=== PATIENT | male | born 1930 | race Caucasian/White ===

== ENCOUNTER 2017-03-12 06:26 | Inpatient (IN) | payer OTHER ==
[~2017-03-12] VITALS: Ht 177.8 cm; Wt 65.3 kg
[2017-03-12 06:32] VITALS: BP_SYST 131
[2017-03-12] MEDS ORDERED: NACL 0.9% 1,000 ML IV ONE (06:38)
[2017-03-12] MEDS ORDERED: DOCU-144 PO (07:01)
[2017-03-12] MEDS ORDERED: FAMO20TA8 PO (07:01)
[2017-03-12] MEDS ORDERED: DULR10 RC (07:01)
[2017-03-12] MEDS ORDERED: DILT120C89 PO (07:01)
[2017-03-12] MEDS ORDERED: AMI200 PO (07:01)
[2017-03-12] MEDS ORDERED: FURO-150 PO (07:01)
[2017-03-12] MEDS ORDERED: IPRA3AMP9 INH (07:01)
[2017-03-12] MEDS ORDERED: TAMS-11 PO (07:01)
[2017-03-12] MEDS ORDERED: LIP20 PO (07:01)
[2017-03-12] MEDS ORDERED: PRED10TA PO (07:01)
[2017-03-12] MEDS ORDERED: CLOP75TA2 PO (07:01)
[2017-03-12] MEDS ORDERED: MONT10TA25 PO (07:01)
[2017-03-12] MEDS ORDERED: SENNS PO (07:01)
[2017-03-12] MEDS ORDERED: LISI-209 PO (07:01)
[2017-03-12] MEDS ORDERED: GUAI600T86 PO (07:01)
[2017-03-12] MEDS ORDERED: HEPA500014 SUBCUT (07:01)
[2017-03-12] MEDS ORDERED: ASPI325T2 PO (07:01)
[2017-03-12] MEDS ORDERED: CARV6.2554 PO (07:01)
[2017-03-12 08:13] LABS: HEMATOCRIT 29.1 % (36-54); MEAN CORPUSCULAR HEMOGLOBIN 32 pg (27-31); MEAN CORPUSCULAR HGB CONC 34 % (32-36); MEAN CORPUSCULAR VOLUME 93 fL (79.0-98.0); PLATELET COUNT (AUTO) 269 K/uL (130-430); RED BLOOD CELL COUNT(AUTO) 3.13 MIL/uL (4.2-6.2); RED CELL DISTRIBUTION WIDTH 13.3 % (9.0-15.0); WHITE BLOOD COUNT (AUTO) 14.6 K/uL (4.8-10.8)
[2017-03-12 08:28] LABS: ANION GAP 6 (5-15); CALCIUM 8.2 mg/dL (8.4-11.0); CHLORIDE 101 mmol/L (98-107); CREATININE 0.95 mg/dL (0.55-1.30); GLUCOSE 107 mg/dL (70-99); SODIUM SERUM 138 mmol/L (136-145); UREA NITROGEN, BLOOD 28 mg/dL (8-21)
[2017-03-12 08:30] LABS: ALANINE AMINOTRANSFERASE 20 U/L (12-78); ALBUMIN 2.2 g/dL (3.4-4.8); AMYLASE 41 U/L (0-100); ASPARTATE AMINOTRANSFERASE 13 U/L (10-37); LIPASE 117 U/L (73-393); TOTAL BILIRUBIN 0.5 mg/dL (0.0-1.0)
[2017-03-12] MEDS ORDERED: SENNOSIDES/DOCUSATE SODIUM 1 TAB TABLET(SENOKOT-S) PO PRN (08:30)
[2017-03-12 08:36] LABS: POTASSIUM 2.9 mmol/L (3.5-5.1)
[2017-03-12 08:41] LABS: INR 1.1 (0.80-1.20)
[2017-03-12] MEDS ORDERED: KCL 10 mEq in 50 mL (PREMIX) 50 ML IV ONE (08:45)
[2017-03-12] MEDS: FUROSEMIDE 20 MG TABLET PO SCH (09:00)
[2017-03-12] MEDS: ASPIRIN 325 MG TABLET PO SCH (09:00)
[2017-03-12] MEDS: PREDNISONE 20 MG TABLET PO SCH (09:00)
[2017-03-12] MEDS: AMIODARONE HCL 200 MG TABLET PO SCH (09:00)
[2017-03-12] MEDS: CARVEDILOL 6.25 MG TABLET (COREG) PO SCH ×2 (09:00→21:00)
[2017-03-12] MEDS: FAMOTIDINE 20 MG TABLET PO SCH (09:00)
[2017-03-12] MEDS: BISACODYL 10 MG/SUPPOSITORY RC SCH (09:00)
[2017-03-12] MEDS ORDERED: DILTIAZEM HCL 120 MG CAP.SR.24H PO SCH (09:00)
[2017-03-12] MEDS: LISINOPRIL 5 MG TABLET PO SCH (09:00)
[2017-03-12 09:12] LABS: ATYPICAL LYMPHOCYTES % 0 % (0-0); BAND % (MANUAL) 0 % (0-6); BASOPHILS % (MANUAL) 0 % (0-2); EOSINOPHILS % (MANUAL) 1 % (0-7); LYMPHOCYTES % (MANUAL) 6 % (20-46); MONOCYTES % (MANUAL) 3 % (0-11)
[2017-03-12] MEDS ORDERED: IOHEXOL 100 ML IV ONE (09:17)
[2017-03-12 09:55] VITALS: BP_SYST 120
[2017-03-12] MEDS: HYDROcodone/ACETAMIN 10-325 MG TAB PO PRN ×2 (12:17→20:41)
[2017-03-12 14:36] VITALS: BP_SYST 120
[2017-03-12] MEDS ORDERED: AMIODARONE HCL 200 MG TABLET PO ONE ×2 (14:45→15:00)
[2017-03-12] MEDS ORDERED: DOCUSATE SODIUM 100 MG CAPSULE PO ONE (14:45)
[2017-03-12] MEDS ORDERED: FAMOTIDINE 20 MG TABLET PO ONE ×2 (14:45→15:00)
[2017-03-12] MEDS ORDERED: CARVEDILOL 6.25 MG TABLET (COREG) PO ONE (14:45)
[2017-03-12] MEDS ORDERED: ASPIRIN 325 MG TABLET PO ONE ×2 (14:45→15:00)
[2017-03-12] MEDS ORDERED: BISACODYL 10 MG/SUPPOSITORY RC ONE ×2 (14:45→15:00)
[2017-03-12] MEDS ORDERED: LISINOPRIL 5 MG TABLET PO ONE (15:00)
[2017-03-12] MEDS ORDERED: guaiFENesin ER 600 MG TAB PO ONE (15:00)
[2017-03-12] MEDS ORDERED: TAMSULOSIN HCL 0.4 MG CAP PO ONE (15:00)
[2017-03-12] MEDS ORDERED: FUROSEMIDE 20 MG TABLET PO ONE (15:00)
[2017-03-12] MEDS ORDERED: DILTIAZEM HCL 120 MG CAP.SR.24H PO ONE (15:00)
[2017-03-12] MEDS ORDERED: PREDNISONE 20 MG TABLET PO ONE (15:00)
[2017-03-12] MEDS: HYDROcodone/ACETAMIN 5-325 MG TAB (NORCO/ VICODIN) PO PRN (15:44)
[2017-03-12 16:30] VITALS: BP_SYST 131
[2017-03-12] MEDS: IPRATROPIUM/ALBUTEROL SULFATE 3 ML AMPUL.NEB INH SCH ×4 (17:27→23:39)
[2017-03-12] MEDS ORDERED: MONTELUKAST 10 MG TABLET PO SCH (18:00)
[2017-03-12] MEDS ORDERED: GOLYTELY / COLYTE SOLUTION 4 LITERS PO ONE (18:30)
[2017-03-12 20:00] VITALS: BP_SYST 108
[2017-03-12] MEDS ORDERED: BISACODYL 5 MG TABLET.DR (DULCOLAX) PO SCH (20:00)
[2017-03-12] MEDS: guaiFENesin ER 600 MG TAB PO SCH (20:42)
[2017-03-12] MEDS: DOCUSATE SODIUM 100 MG CAPSULE PO SCH (20:42)
[2017-03-12] MEDS: TAMSULOSIN HCL 0.4 MG CAP PO SCH (20:43)
[2017-03-12] MEDS ORDERED: ATORVASTATIN 20 MG TABLET PO SCH (21:00)
[2017-03-12] MEDS: NACL 0.9% 1,000 ML IV SCH (22:04)
[2017-03-12] MEDS ORDERED: NS 250 ML IV ONE (22:30)
[2017-03-13] MEDS: HYDROcodone/ACETAMIN 10-325 MG TAB PO PRN ×2 (00:18→04:22)
[2017-03-13 01:54] VITALS: BP_SYST 117
[2017-03-13 03:33] VITALS: BP_SYST 107
[2017-03-13] MEDS: IPRATROPIUM/ALBUTEROL SULFATE 3 ML AMPUL.NEB INH SCH ×3 (03:49→10:52)
[2017-03-13] MEDS: NACL 0.9% 1,000 ML IV SCH ×2 (04:26→06:56)
[2017-03-13 06:57] LABS: HEMOGLOBIN 8.5 g/dL (14.0-18.0); LYMPHOCYTES # (AUTO) 0.4 K/uL (1.0-5.5); LYMPHOCYTES % (AUTO) 2.8 % (20.5-51.5); MEAN CORPUSCULAR HEMOGLOBIN 32 pg (27-31); MEAN CORPUSCULAR HGB CONC 34 % (32-36); MEAN CORPUSCULAR VOLUME 93 fL (79.0-98.0); MONOCYTES # (AUTO) 0.3 K/uL (0.0-1.0); MONOCYTES % (AUTO) 2.5 % (1.7-9.3); NEUTROPHILS # (AUTO) 13.1 K/uL (1.8-7.7); NEUTROPHILS % (AUTO) 94.7 % (40.0-70.0); PLATELET COUNT (AUTO) 220 K/uL (130-430); RED BLOOD CELL COUNT(AUTO) 2.69 MIL/uL (4.2-6.2); RED CELL DISTRIBUTION WIDTH 14.1 % (9.0-15.0); WHITE BLOOD COUNT (AUTO) 13.8 K/uL (4.8-10.8)
[2017-03-13 07:20] LABS: INR 1.1 (0.80-1.20); PROTHROMBIN TIME 11.8 SECS (9.5-12.5)
[2017-03-13 07:24] LABS: ANION GAP 9 (5-15); CALCIUM 7.7 mg/dL (8.4-11.0); CHLORIDE 105 mmol/L (98-107); CREATININE 0.89 mg/dL (0.55-1.30); GLUCOSE 151 mg/dL (70-99); POTASSIUM 3.1 mmol/L (3.5-5.1); SODIUM SERUM 139 mmol/L (136-145); UREA NITROGEN, BLOOD 27 mg/dL (8-21)
[2017-03-13 08:15] VITALS: BP_SYST 116
[2017-03-13] MEDS ORDERED: DILTIAZEM HCL 120 MG CAP.SR.24H PO SCH (09:00)
[2017-03-13] MEDS: BISACODYL 10 MG/SUPPOSITORY RC SCH (09:00)
[2017-03-13] MEDS: TAMSULOSIN HCL 0.4 MG CAP PO SCH (09:30)
[2017-03-13] MEDS: LISINOPRIL 5 MG TABLET PO SCH (09:31)
[2017-03-13] MEDS: AMIODARONE HCL 200 MG TABLET PO SCH (09:32)
[2017-03-13] MEDS: PREDNISONE 20 MG TABLET PO SCH (09:32)
[2017-03-13] MEDS: HYDROcodone/ACETAMIN 5-325 MG TAB (NORCO/ VICODIN) PO PRN (09:33)
[2017-03-13] MEDS: guaiFENesin ER 600 MG TAB PO SCH (09:33)
[2017-03-13] MEDS: FAMOTIDINE 20 MG TABLET PO SCH (09:34)
[2017-03-13] MEDS: ASPIRIN 325 MG TABLET PO SCH (09:34)
[2017-03-13] MEDS: CARVEDILOL 6.25 MG TABLET (COREG) PO SCH (09:36)
[2017-03-13] MEDS: FUROSEMIDE 20 MG TABLET PO SCH (09:36)
[2017-03-13] MEDS: DOCUSATE SODIUM 100 MG CAPSULE PO SCH (09:37)
[2017-03-13] MEDS ORDERED: POTASSIUM CHLORIDE 20 MEQ TAB.PRT.SR PO SCH (11:30)
[2017-03-13 11:44] VITALS: BP_SYST 116
[2017-03-13 12:57] VITALS: BP_SYST 92
== END 2017-03-13 13:05 | disposition short-term general hospital (02) | DRG 378 ==
LOC: SED 06:26 → STU 08:12
PROVIDERS: ADMIT Family Medicine; ATTEND Family Medicine
DX: K92.2 Gastrointestinal hemorrhage, unspecified (principal); K63.3 Ulcer of intestine; E44.0 Moderate protein-calorie malnutrition; I50.20 Unspecified systolic (congestive) heart failure; I11.0 Hypertensive heart disease with heart failure; I48.91 Unspecified atrial fibrillation; J44.9 Chronic obstructive pulmonary disease, unspecified; K92.1 Melena; E78.5 Hyperlipidemia, unspecified; Z66 Do not resuscitate; K57.90 Diverticulosis of intestine, part unspecified, without perforation or abscess without bleeding; J30.9 Allergic rhinitis, unspecified; Z95.5 Presence of coronary angioplasty implant and graft; K56.41 Fecal impaction; K64.8 Other hemorrhoids; Z96.642 Presence of left artificial hip joint; N40.0 Benign prostatic hyperplasia without lower urinary tract symptoms; F43.10 Post-traumatic stress disorder, unspecified; I25.10 Atherosclerotic heart disease of native coronary artery without angina pectoris; I25.2 Old myocardial infarction; Z87.891 Personal history of nicotine dependence; Z87.81 Personal history of (healed) traumatic fracture; Z88.0 Allergy status to penicillin; Z88.8 Allergy status to other drugs, medicaments and biological substances; Z79.899 Other long term (current) drug therapy
CPT/HCPCS: 36415; 71010; 80048; 80053; 82150-TC; 82272; 83605; 83690-TC; 83880; 85007; 85025; 85027; 85610-TC; 85730-TC; 86886; 86900; 86901; 87081; 89055; 93005; 94640; 94760; 96361; 96365; 99285; J3480; J7030; J7050; J7512; Q9967